=== PATIENT | male | born 2000 | race African-American/Black ===

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

== ENCOUNTER 2024-09-09 19:42 | Emergency (ER) | payer OTHER ==
[2024-09-09 20:06] VITALS: BP 138/81; PULSE 65; RESP 16; TEMP 98.6; BMI 21.8
[2024-09-09] MEDS ORDERED: predniSONE 20 MG TABLET (UD) ONE (20:11)
[2024-09-09] MEDS: predniSONE 20 MG TABLET (UD) PO ONE (20:12)
== END 2024-09-09 20:15 | disposition home or self-care (01) ==
LOC: FER 19:42
DX: L23.9 Allergic contact dermatitis, unspecified cause (principal)
CPT/HCPCS: 99283-25